=== PATIENT | female | born 1985 | race Native Hawaiian/Other Pacific Islander ===

== ENCOUNTER 2022-06-08 09:59 | Emergency (ER) | payer OTHER ==
[~2022-06-08] VITALS: Ht 180.3 cm; Wt 64.9 kg
[2022-06-08 10:01] VITALS: BP 120/86; TEMP 98.7
[2022-06-08 10:32] LABS: PLATELET COUNT 217 K/uL (152-353)
[2022-06-08 10:47] LABS: POTASSIUM 3.4 mmol/L (3.6-5.2)
[2022-06-08] MEDS ORDERED: KETO10TA34 PO (11:42)
[2022-06-08] MEDS ORDERED: K-TAB20 MEQ PO (11:42)
== END 2022-06-08 11:51 | disposition home or self-care (01) ==
LOC: ED 09:59
PROVIDERS: Emergency Medicine Emergency Medical Services
DX: R07.89 Other chest pain (principal); E87.6 Hypokalemia
CPT/HCPCS: 36415; 80053; 83735; 83880; 84484; 85027; 85379; 85610; 93005; 96360; 96361; 99284

== ENCOUNTER 2022-10-24 12:01 | Outpatient (CLI) | payer OTHER ==
[~2022-10-24 12:01] MED LIST: K-TAB20 MEQ PO; KETO10TA34 PO
== END 2022-10-24 19:00 | disposition home or self-care (01) ==
LOC: RAD 12:01
PROVIDERS: ATTEND Internal Medicine
DX: R29.898 Other symptoms and signs involving the musculoskeletal system (principal); M25.571 Pain in right ankle and joints of right foot; M79.671 Pain in right foot